=== PATIENT | female | born 1930 | race African-American/Black ===

== ENCOUNTER 2016-10-16 17:52 | Inpatient (IN) | payer MEDICARE, OTHER ==
[~2016-10-16] VITALS: Ht 160 cm; Wt 75.7 kg
[~2016-10-16 17:52] MED LIST: ACET-2853 PO; AMLO10TA4 PO; METO50TA5 PO; SITA50TA3 PO
[2016-10-16] MEDS ORDERED: ASPIRIN 81MG TABLET PO STA (18:35)
[2016-10-16] MEDS ORDERED: SODIUM CHLORIDE 0.9% 1000ML BAG (SEPSIS BOLUS) IV ONE (18:45)
[2016-10-16 19:04] LABS: EOSINOPHILS % 2.5 % (0.0-5.0); HEMATOCRIT. 34.1 % (36.0-48.0); HEMOGLOBIN. 11.2 g/dL (12.0-16.0); LYMPHOCYTES % 38.3 % (20.0-50.0); MEAN CORPUSCULAR HEMOGLOBIN 30.5 pg (28.0-32.0); MEAN CORPUSCULAR VOLUME 93.1 fL (81.0-99.0); MEAN PLATELET VOLUME 8.7 fl (7.4-10.4); MONOCYTES % 10.5 % (2.0-8.0); NEUTROPHILS % 47.7 % (40.0-76.0); PLATELET 176 x1000/uL (130-400); RED BLOOD CELL COUNT 3.67 mill/uL (4.2-5.4); RED CELL DISTRIBUTION WIDTH 17.7 % (11.6-14.6)
[2016-10-16 19:10] LABS: D-DIMER 0.92 mg/L FEU (<0.50); PARTIAL THROMBOPLASTIN TIME 26.1 sec (24.0-34.0); PROTHROMBIN TIME 10.6 sec
[2016-10-16 19:12] LABS: TROPONIN I 0.11 ng/mL (0.00-0.04)
[2016-10-16] MEDS ORDERED: POTASSIUM CHLORIDE 20MEQ TABLET SR PO ONE (19:45)
[2016-10-17] VITALS (7 sets, daily range): BP systolic 124–165; BP diastolic 65–85
[2016-10-17] MEDS ORDERED: VALS160T2 PO (03:40)
[2016-10-17] MEDS ORDERED: CLONIDINE 0.1MG TABLET PO PRN (04:45)
[2016-10-17] MEDS ORDERED: DEXTROSE 50% WATER 50ML SYRINGE IV PRN (04:45)
[2016-10-17] MEDS ORDERED: IPRATROPIUM/ALBUTEROL 0.5-3(2.5)MG/3ML NEB HHN PRN (04:45)
[2016-10-17] MEDS ORDERED: LEVOFLOXACIN 500MG PREMIX 100 ML IV NR (06:00)
[2016-10-17] MEDS: BLOOD SUGAR DIAGNOSTIC STRIP TEST SCH ×4 (06:12→21:37)
[2016-10-17] MEDS: INSULIN LISPRO 100 UNITS/ML SUBCUT SCH ×4 (06:16→21:00)
[2016-10-17 06:31] LABS: BASOPHILS % 0.6 % (0.0-2.0); EOSINOPHILS % 2.6 % (0.0-5.0); HEMOGLOBIN. 11.9 g/dL (12.0-16.0); LYMPHOCYTES % 40.7 % (20.0-50.0); MEAN CORPUSCULAR HEMOGLOBIN 31.6 pg (28.0-32.0); MEAN CORPUSCULAR VOLUME 92.6 fL (81.0-99.0); MEAN PLATELET VOLUME 8.8 fl (7.4-10.4); MONOCYTES % 8.9 % (2.0-8.0); NEUTROPHILS % 47.2 % (40.0-76.0); PLATELET 187 x1000/uL (130-400); RED BLOOD CELL COUNT 3.78 mill/uL (4.2-5.4); RED CELL DISTRIBUTION WIDTH 17.3 % (11.6-14.6)
[2016-10-17 07:30] LABS: CARBON DIOXIDE 29 mEq/L (21-32); CHLORIDE 104 mEq/L (98-107)
[2016-10-17] MEDS: PANTOPRAZOLE SODIUM 40 MG/VIAL IV SCH (09:21)
[2016-10-17] MEDS: ENOXAPARIN 30MG/0.3ML SYR SUBCUT SCH (09:21)
[2016-10-17] MEDS ORDERED: POTASSIUM CHLORIDE 20MEQ TABLET SR PO SCH (12:30)
[2016-10-17] MEDS: AMLODIPINE 10MG TABLET PO SCH (12:48)
[2016-10-17] MEDS: METOPROLOL TARTRATE 50MG TABLET PO SCH ×2 (12:48→21:37)
[2016-10-17] MEDS: ASPIRIN 81MG TABLET PO SCH (12:57)
[2016-10-17] MEDS ORDERED: POTASSIUM CHLORIDE 20MEQ TABLET SR PO NR (13:30)
[2016-10-17] MEDS ORDERED: HYDRALAZINE 20MG/ML VIAL IV PRN (15:45)
[2016-10-18] VITALS: BP 124/60
[2016-10-18 04:00] VITALS: BP 127/77
[2016-10-18] MEDS: BLOOD SUGAR DIAGNOSTIC STRIP TEST SCH ×4 (06:45→21:04)
[2016-10-18] MEDS: INSULIN LISPRO 100 UNITS/ML SUBCUT SCH ×4 (07:01→21:00)
[2016-10-18 07:13] LABS: BASOPHILS % 0.5 % (0.0-2.0); EOSINOPHILS % 2.7 % (0.0-5.0); HEMATOCRIT. 33.9 % (36.0-48.0); HEMOGLOBIN. 11.3 g/dL (12.0-16.0); MEAN CORPUSCULAR HEMOGLOBIN 30.8 pg (28.0-32.0); MEAN CORPUSCULAR VOLUME 92.2 fL (81.0-99.0); MONOCYTES % 9.8 % (2.0-8.0); PLATELET 170 x1000/uL (130-400); RED BLOOD CELL COUNT 3.68 mill/uL (4.2-5.4); RED CELL DISTRIBUTION WIDTH 17.1 % (11.6-14.6)
[2016-10-18 07:48] LABS: CHLORIDE 102 mEq/L (98-107); CREATINE KINASE MB FRACTION 3.4 ng/mL (0.5-3.6); TROPONIN I 0.13 ng/mL (0.00-0.04)
[2016-10-18 08:16] LABS: CARBON DIOXIDE 26 mEq/L (21-32); CREATINE KINASE 297 IU/L (26-192); HDL CHOLESTEROL 74 mg/dL (40-59); LDL CHOLESTEROL 99 mg/dL (5-100)
[2016-10-18 08:30] VITALS: BP 122/80
[2016-10-18] MEDS ORDERED: POTASSIUM CHLORIDE 20MEQ TABLET SR PO NR ×3 (09:30→18:00)
[2016-10-18] MEDS: AMLODIPINE 10MG TABLET PO SCH (09:31)
[2016-10-18] MEDS: PANTOPRAZOLE SODIUM 40 MG/VIAL IV SCH (09:32)
[2016-10-18] MEDS: METOPROLOL TARTRATE 50MG TABLET PO SCH ×2 (09:32→21:00)
[2016-10-18] MEDS: ASPIRIN 81MG TABLET PO SCH (09:32)
[2016-10-18] MEDS: ENOXAPARIN 30MG/0.3ML SYR SUBCUT SCH (09:32)
[2016-10-18] MEDS ORDERED: MAGNESIUM 1 G PREMIX 100 ML IV NR ×2 (11:00→13:00)
[2016-10-18 12:00] VITALS: BP 127/72
[2016-10-18 16:00] VITALS: BP 119/72
[2016-10-18 20:00] VITALS: BP 125/74
[2016-10-19] VITALS: BP 137/68
[2016-10-19 04:00] VITALS: BP 115/65
[2016-10-19 05:54] LABS: BASOPHILS % 0.5 % (0.0-2.0); EOSINOPHILS % 2.7 % (0.0-5.0); HEMATOCRIT. 32.5 % (36.0-48.0); HEMOGLOBIN. 10.8 g/dL (12.0-16.0); LYMPHOCYTES % 50.6 % (20.0-50.0); MEAN CORPUSCULAR HEMOGLOBIN 30.7 pg (28.0-32.0); MEAN CORPUSCULAR VOLUME 92.8 fL (81.0-99.0); MEAN PLATELET VOLUME 8.7 fl (7.4-10.4); MONOCYTES % 10.2 % (2.0-8.0); PLATELET 171 x1000/uL (130-400); RED CELL DISTRIBUTION WIDTH 17.3 % (11.6-14.6)
[2016-10-19] MEDS ORDERED: LEVOFLOXACIN 250MG PREMIX 50 ML IV SCH (06:00)
[2016-10-19] MEDS: INSULIN LISPRO 100 UNITS/ML SUBCUT SCH ×2 (06:54→12:15)
[2016-10-19] MEDS: BLOOD SUGAR DIAGNOSTIC STRIP TEST SCH ×2 (06:54→12:15)
[2016-10-19 08:00] VITALS: BP 142/78
[2016-10-19] MEDS: METOPROLOL TARTRATE 50MG TABLET PO SCH (08:54)
[2016-10-19] MEDS: ASPIRIN 81MG TABLET PO SCH (08:54)
[2016-10-19] MEDS: AMLODIPINE 10MG TABLET PO SCH (08:55)
[2016-10-19] MEDS: ENOXAPARIN 30MG/0.3ML SYR SUBCUT SCH (08:55)
[2016-10-19] MEDS: PANTOPRAZOLE SODIUM 40 MG/VIAL IV SCH (08:55)
[2016-10-19 12:00] VITALS: BP 135/71
[2016-10-19 13:36] VITALS: BP 135/71
[2016-10-21] MEDS ORDERED: LEVOFLOXACIN 250MG TABLET PO SCH (11:00)
== END 2016-10-19 16:12 | disposition home or self-care (01) | DRG 682 ==
LOC: ER 18:56 → 5WST 21:18 → EDBEDREQTM 21:21 → EDBEDREQ 21:21 → ENRESERV 10-17 01:46 → 5WST 10-17 03:17
PROVIDERS: ADMIT Hospitalist; ATTEND Hospitalist
DX: N17.9 Acute kidney failure, unspecified (principal); J18.9 Pneumonia, unspecified organism; E11.22 Type 2 diabetes mellitus with diabetic chronic kidney disease; E87.6 Hypokalemia; I13.10 Hypertensive heart and chronic kidney disease without heart failure, with stage 1 through stage 4 chronic kidney disease, or unspecified chronic kidney disease; I49.9 Cardiac arrhythmia, unspecified; I27.2 Other secondary pulmonary hypertension; N18.9 Chronic kidney disease, unspecified; Z90.710 Acquired absence of both cervix and uterus; Z88.0 Allergy status to penicillin; Z87.891 Personal history of nicotine dependence
CPT/HCPCS: 36415; 71010; 78582; 80048; 80053; 80061; 82550; 82553; 82962; 83605; 83735; 83880; 84443; 84484; 85025; 85379; 85610; 85730; 87040; 93005; 93306; 93970; 97161; 99285; A9558; C9113; J1650; J1956; J3475; J7030; J7050; J7620